=== PATIENT | male | born 1995 | race Caucasian/White ===

== ENCOUNTER 2020-10-02 10:18 | Day surgery (SDC) | payer BC ==
[2020-10-02] MEDS ORDERED: Sodium Chloride 0.9% 10 ML Syringe FLUSH PRN (10:37)
[2020-10-02] MEDS ORDERED: diphenhydrAMINE 50 MG/ML SDV IVPUSH PRN (10:37)
[2020-10-02] MEDS ORDERED: HYDROmorphone 2 MG/ML Syringe IVPUSH PRN ×2 (10:37→11:39)
[2020-10-02] MEDS ORDERED: Sodium Chloride 0.9% 2.5 ML Syringe FLUSH PRN (10:37)
[2020-10-02] MEDS ORDERED: Ondansetron 4 MG/2 ML SDV IVPUSH PRN ×2 (10:37→11:39)
[2020-10-02] MEDS ORDERED: Sodium Chloride 0.9% 10 ML SDV IV PRN (10:37)
[2020-10-02] MEDS ORDERED: Lactated Ringers 1,000 ML IV SCH (10:45)
[2020-10-02] MEDS ORDERED: Ciprofloxacin in D5W 400 MG in Premix Bag 1 BAG IV SCH ×2 (10:45)
[2020-10-02] MEDS ORDERED: Midazolam 1 MG/ML 2 ML SDV ONE (11:17)
[2020-10-02] MEDS ORDERED: Propofol 200 MG/20 ML SDV ONE ×2 (11:18→12:13)
[2020-10-02] MEDS ORDERED: Lidocaine 2% 5 ML SDV ONE (11:18)
[2020-10-02] MEDS ORDERED: fentaNYL 100 MCG/2 ML SDV ONE (11:18)
[2020-10-02] MEDS ORDERED: Ondansetron 4 MG/2 ML SDV ONE (11:19)
[2020-10-02] MEDS ORDERED: Rocuronium Bromide 50 MG/5 ML Syringe ONE (11:19)
[2020-10-02] MEDS ORDERED: Morphine 2 MG/ML SYRINGE IVPUSH PRN (11:39)
[2020-10-02] MEDS ORDERED: Naloxone 0.4 MG/ML Syringe IVPUSH PRN (11:39)
[2020-10-02] MEDS ORDERED: Albuterol 0.083% 2.5 MG/3 ML Neb Soln NEB PRN (11:39)
[2020-10-02] MEDS ORDERED: fentaNYL 100 MCG/2 ML SDV IVPUSH PRN (11:39)
[2020-10-02] MEDS ORDERED: Metoclopramide 10 MG/2 ML SDV IVPUSH PRN (11:39)
--- NOTE | 2020-10-02 11:39 | PCM.PREANE ---
Preanesthetic Assessment - Anesthesia/Transfusion/Family Hx Anesthesia History: Prior Anesthesia Without Reaction Transfusion History: No Prior Transfusion(s) - Review of Systems General: No Symptoms Pulmonary: No Symptoms Cardiovascular: No Symptoms Gastrointestinal: No Symptoms Neurological: No Symptoms Other: Reports: None - Physical Assessment NPO Status Date: 10/02/20 NPO Status Time: 00:00 Vital Signs: Last Vital Signs Temp 97.0 F 10/02/20 10:54 Pulse 103 H 10/02/20 10:54 Resp 16 10/02/20 10:54 BP 135/85 10/02/20 10:54 Pulse Ox 95 10/02/20 10:54 Height: 6 ft Weight: 281 lb 11.2 oz ASA Class: 2E Mental Status: Alert & Oriented x3 Airway Class: Mallampati = 2 Dentition: Reports: Normal Dentition ROM/Head Extension: Full Lungs: Clear to Auscultation, Normal Respiratory Effort Cardiovascular: Regular Rate, Regular Rhythm - Allergies Allergies/Adverse Reactions: Allergies Allergy/AdvReac Type Severity Reaction Status Date / Time Penicillins Allergy Cannot Verified 10/02/20 11:19 Remember - Blood Blood Available: No - Anesthesia Plan Pre-Op Medication Ordered: None - Acknowledgements Anesthesia Type Planned: General Anesthesia Pt an Appropriate Candidate for the Planned Anesthesia: Yes Alternatives and Risks of Anesthesia Discussed w Pt/Guardian: Yes Pt/Guardian Understands and Agrees with Anesthesia Plan: Yes PreAnesthesia Questionnaire - Past Health History Medical/Surgical History: Denies Medical/Surgical History - SUBSTANCE USE Tobacco Use Status *Q: Never Tobacco User Second Hand Smoke Exposure: No Recreational Drug Use History: No - HOME MEDS Home Medications: Home Meds . [No Known Home Meds] 01/01/20 [History] - CURRENT (IN HOUSE) MEDS Current Meds: Current Medications Diphenhydramine HCl (Diphenhydramine 50 Mg/Ml Sdv) 50 mg IVPUSH Q4H PRN PRN Reason: Itching Hydromorphone HCl (Hydromorphone 2 Mg/Ml Syringe) 0.5 mg IVPUSH Q1H PRN PRN Reason: Pain (severe 7-10) Lactated Ringer's (Ringers, Lactated) 1,000 mls @ 125 mls/hr IV ASDIRECTED [facility] Last Admin: 10/02/20 10:52 Dose: 125 mls/hr Documented by: Ciprofloxacin/Dextrose 400 mg/ (Premix) 200 mls @ 200 mls/hr IV Q12H [facility] Last Admin: 10/02/20 10:59 Dose: 200 mls/hr Documented by: Metronidazole 500 mg/ Premix 100 mls @ 100 mls/hr IV QID [facility] Ondansetron HCl (Ondansetron 4 Mg/2 Ml Sdv) 4 mg IVPUSH Q6H PRN PRN Reason: Nausea/Vomiting Sodium Chloride (Sodium Chloride 0.9% 10 Ml Syringe) 10 ml FLUSH ASDIRECTED PRN PRN Reason: Keep Vein Open Sodium Chloride (Sodium Chloride 0.9% 2.5 Ml Syringe) 2.5 ml FLUSH ASDIRECTED PRN PRN Reason: Keep Vein Open Sodium Chloride (Sodium Chloride 0.9% 10 Ml Sdv) 10 ml IV ASDIRECTED PRN PRN Reason: IV Use Discontinued Medications Fentanyl (Fentanyl 100 Mcg/2 Ml Sdv) Confirm Administered Dose 100 mcg .ROUTE .STK-MED ONE Stop: 10/02/20 11:19 Lidocaine (Lidocaine 2% 5 Ml Sdv) Confirm Administered Dose 5 ml .ROUTE .STK-MED ONE Stop: 10/02/20 11:19 Midazolam HCl (Midazolam 1 Mg/Ml 2 Ml Sdv) Confirm Administered Dose 2 mg .ROUTE .STK-MED ONE Stop: 10/02/20 11:18 Ondansetron HCl (Ondansetron 4 Mg/2 Ml Sdv) Confirm Administered Dose 4 mg .ROUTE .STK-MED ONE Stop: 10/02/20 11:20 Propofol (Propofol 200 Mg/20 Ml Sdv) Confirm Administered Dose 200 mg .ROUTE .STK-MED ONE Stop: 10/02/20 11:19 Rocuronium [place] (Rocuronium [place] 50 Mg/5 Ml Syringe) Confirm Administered Dose 50 mg .ROUTE .STK-MED ONE Stop: 10/02/20 11:20
[2020-10-02] MEDS ORDERED: metroNIDAZOLE/Normal Saline 500 MG in Premix Bag 1 BAG IV SCH (12:00)
[2020-10-02] MEDS ORDERED: Bupivacaine 0.5% 10 ML SDV ONE (12:19)
[2020-10-02] MEDS ORDERED: Octyl 2-Cyanoacrylate 1 Tube ONE (12:19)
--- NOTE | 2020-10-02 13:01 | PCM.HP.2 ---
H&P History of Present Illness - General Date of Service: 10/02/20 Admit Problem/Dx: Admission Diagnosis/Problem Admission Diagnosis/Problem Appendicitis Source of Information: Patient History Limitations: Reports: No Limitations - History of Present Illness Initial Comments - Free Text/Narative: Patient is a 25 year old male who presented to an OSH with acute abdominal pain. He felt unwell after supper last evening. He went to bed and was awoken by severe lower right quadrant pain that progressively got worse. He presented to an OSH ER. He was slightly hypertensive on arrival. He was found to have a WBC of 16K with a left shift. He had a CT scan that showed a retrocecal appendix which was dilated to 11mm with inflammatory stranding suggesting acute appendicitis. - Related Data Allergies/Adverse Reactions: Allergies Allergy/AdvReac Type Severity Reaction Status Date / Time Penicillins Allergy Cannot Verified 10/02/20 11:19 Remember Home Medications: Home Meds . [No Known Home Meds] 01/01/20 [History] Past Medical History - Past Health History Medical/Surgical History: Denies Medical/Surgical History - Infectious Disease History Infectious Disease History: Reports: Chicken Pox - Past Surgical History Other HEENT Surgeries/Procedures: wears contact lenses, wisdom teeth removal Social & Family History - Family History Cardiac: Reports: Hypertension Other Cardiac Family History: Dad and grandpa Oncologic: Reports: Breast, Other (See Below) Other Oncologic Family History: testicular - Tobacco Use Tobacco Use Status *Q: Never Tobacco User Second Hand Smoke Exposure: No - Caffeine Use Caffeine Use: Reports: Energy Drinks Caffeine Use Comment: Occasionally - Recreational Drug Use Recreational Drug Use: No H&P Review of Systems - Review of Systems: Review Of Systems: Comprehensive ROS is negative, except as noted in HPI. Exam - Exam Exam: See Below - Vital Signs Vital Signs: Last Vital Signs Temp 36.1 C 10/02/20 10:54 Pulse 103 H 10/02/20 10:54 Resp 16 10/02/20 10:54 BP 135/85 10/02/20 10:54 Pulse Ox 95 10/02/20 10:54 Weight: 127.777 kg - Exam General: Alert, Oriented, Cooperative HEENT: Conjunctiva Clear, Mucosa Moist & [place], Posterior Pharynx Clear Neck: Supple, Trachea Midline Lungs: Clear to Auscultation, Normal Respiratory Effort Cardiovascular: Regular Rate, Regular Rhythm GI/Abdominal Exam: Soft, No Distention, Guarding (RLQ), Rebound (RLQ), Tender (RLQ) Back Exam: Normal Inspection - Patient Data Lab Results Last 24 hrs: Laboratory Results - last 24 hr 10/02/20 Range/Units 11:39 SARS-CoV-2 RNA (BETH) POSITIVE H (NEGATIVE) Sepsis Event Note - Evaluation Sepsis Screening Result: No Definite Risk - Focused Exam Vital Signs: Vital Signs Temp Pulse Resp BP Pulse Ox 10/02/20 10:54 36.1 C 103 H 16 135/85 95 - Problem List (1) Appendicitis SNOMED Code(s): 01880347 ICD Code: K37 - UNSPECIFIED APPENDICITIS Status: Acute Current Visit: Yes (2) Lab test positive for detection of COVID-19 virus SNOMED Code(s): 0619870256124357 ICD Code: U07.1 - COVID-19 Status: Acute Current Visit: Yes Problem List Initiated/Reviewed/Updated: Yes Orders Last 24hrs: Active Orders 24 hr Category Date Time Status Patient Status [ADT] Routine ADT 10/02/20 10:37 Active Antiembolic Devices [RC] .Routine Care 10/02/20 10:39 Active Blood Glucose Check, Bedside [RC] PRN Care 10/02/20 11:39 Active Intake and Output [RC] Q12H Care 10/02/20 10:38 Active Notify Provider Vital Signs [RC] ASDIRECTED Care 10/02/20 11:39 Active Overnight Pulse Oximetry [RC] Click to Edit Care 10/02/20 11:39 Active Oxygen Therapy [RC] PRN Care 10/02/20 10:37 Active Oxygen Therapy [RC] PRN Care 10/02/20 11:39 Active RT Aerosol Therapy [RC] ASDIRECTED Care 10/02/20 11:39 Active RT Aerosol Therapy [RC] ASDIRECTED Care 10/02/20 11:39 Active RT BiPAP/CPAP [RC] ASDIRECTED Care 10/02/20 11:39 Active RT Incentive Spirometry [RC] Q1HWA Care 10/02/20 10:37 Active Up ad Sonya [RC] ASDIRECTED Care 10/02/20 10:37 Active VTE/DVT Education [RC] PER UNIT ROUTINE Care 10/02/20 10:39 Active Vital Signs [RC] Q4H Care 10/02/20 10:37 Active Vital Signs [RC] Q5M Care 10/02/20 11:39 Active Nothing Per Oral Diet [DIET] Diet 10/02/20 Breakfast Active Albuterol [Proventil Neb Soln] Med 10/02/20 11:39 Active 2.5 mg NEB ONETIME PRN Ciprofloxacin in D5W [Cipro in D5W 400 MG/200 ML] 400 Med 10/02/20 10:45 Active mg Premix Bag 1 bag IV Q12H HYDROmorphone [Dilaudid] Med 10/02/20 10:37 Active 0.5 mg IVPUSH Q1H PRN HYDROmorphone [Dilaudid] Med 10/02/20 11:39 Active 1 mg IVPUSH Q10M PRN Lactated Ringers [Ringers, Lactated] 1,000 ml Med 10/02/20 10:45 Active IV ASDIRECTED Metoclopramide [Reglan] Med 10/02/20 11:39 Active 10 mg IVPUSH ONETIME PRN Morphine Med 10/02/20 11:39 Active 2 mg IVPUSH Q10M PRN Naloxone [Narcan] Med 10/02/20 11:39 Active 0.1 mg IVPUSH ASDIRECTED PRN Ondansetron [Zofran] Med 10/02/20 11:39 Active 4 mg IVPUSH ONETIME PRN Ondansetron [Zofran] Med 10/02/20 10:37 Active 4 mg IVPUSH Q6H PRN Sodium Chloride 0.9% [Normal Saline] Med 10/02/20 10:37 Active 10 ml IV ASDIRECTED PRN Sodium Chloride 0.9% [Saline Flush] Med 10/02/20 10:37 Active 10 ml FLUSH ASDIRECTED PRN Sodium Chloride 0.9% [Saline Flush] Med 10/02/20 10:37 Active 2.5 ml FLUSH ASDIRECTED PRN diphenhydrAMINE [Benadryl] Med 10/02/20 10:37 Active 50 mg IVPUSH Q4H PRN droperidoL [Inapsine] Med 10/02/20 11:39 Active 0.625 mg IVPUSH ONETIME PRN fentaNYL [Sublimaze] Med 10/02/20 11:39 Active 50 mcg IVPUSH Q5M PRN metroNIDAZOLE/Normal Saline [Flagyl in NS 500 MG/100 ML Med 10/02/20 12:00 Active ] 500 mg Premix Bag 1 bag IV QID DVT/VTE Prophylaxis Reflex [OM.PC] Routine Oth 10/02/20 10:37 Ordered Peripheral IV Insertion Adult [OM.PC] Urgent Oth 10/02/20 10:37 Ordered Pulse Oximetry Continuous Monitoring [OM.PC] Routine Oth 10/02/20 11:39 Ordered Resuscitation Status Routine Resus Stat 10/02/20 10:37 Ordered Medication Orders Albuterol (Albuterol 0.083% 2.5 Mg/3 Ml Neb Soln) 2.5 mg NEB ONETIME PRN PRN Reason: Wheezing Diphenhydramine HCl (Diphenhydramine 50 Mg/Ml Sdv) 50 mg IVPUSH Q4H PRN PRN Reason: Itching Droperidol (Droperidol 5 Mg/2 Ml Sdv) 0.625 mg IVPUSH ONETIME PRN PRN Reason: Nausea/Vomiting Fentanyl (Fentanyl 100 Mcg/2 Ml Sdv) 50 mcg IVPUSH Q5M PRN PRN Reason: Pain (mild 1-3) Hydromorphone HCl (Hydromorphone 2 Mg/Ml Syringe) 0.5 mg IVPUSH Q1H PRN PRN Reason: Pain (severe 7-10) Hydromorphone HCl (Hydromorphone 2 Mg/Ml Syringe) 1 mg IVPUSH Q10M PRN PRN Reason: Pain (moderate 4-6) Lactated Ringer's (Ringers, Lactated) 1,000 mls @ 125 mls/hr IV ASDIRECTED [facility] Last Admin: 10/02/20 10:52 Dose: 125 mls/hr Documented by: BERTHA Ciprofloxacin/Dextrose 400 mg/ (Premix) 200 mls @ 200 mls/hr IV Q12H [facility] Last Admin: 10/02/20 10:59 Dose: 200 mls/hr Documented by: BERTHA Metronidazole 500 mg/ Premix 100 mls @ 100 mls/hr IV QID [facility] Last Admin: 10/02/20 11:55 Dose: 100 mls/hr Documented by: BERTHA Metoclopramide HCl (Metoclopramide 10 Mg/2 Ml Sdv) 10 mg IVPUSH ONETIME PRN PRN Reason: Nausea/Vomiting Morphine Sulfate (Morphine 2 Mg/Ml Syringe) 2 mg IVPUSH Q10M PRN PRN Reason: Pain (severe 7-10) Naloxone HCl (Naloxone 0.4 Mg/Ml Syringe) 0.1 mg IVPUSH ASDIRECTED PRN PRN Reason: Respiratory Depression Ondansetron HCl (Ondansetron 4 Mg/2 Ml Sdv) 4 mg IVPUSH Q6H PRN PRN Reason: Nausea/Vomiting Ondansetron HCl (Ondansetron 4 Mg/2 Ml Sdv) 4 mg IVPUSH ONETIME PRN PRN Reason: Nausea/Vomiting Sodium Chloride (Sodium Chloride 0.9% 10 Ml Syringe) 10 ml FLUSH ASDIRECTED PRN PRN Reason: Keep Vein Open Sodium Chloride (Sodium Chloride 0.9% 2.5 Ml Syringe) 2.5 ml FLUSH ASDIRECTED PRN PRN Reason: Keep Vein Open Sodium Chloride (Sodium Chloride 0.9% 10 Ml Sdv) 10 ml IV ASDIRECTED PRN PRN Reason: IV Use Assessment/Plan Comment:: The patient was transferred to our care. A COVID test was performed which was positive. The patient is currently asymptomatic. His physical exam was normal. The case is an emergency and needs to be performed to prevent perforation and the complications associated with that. We discussed the pathophysiology of acute appendicitis. I explained the need for an appendectomy. I will attempt this laparoscopically but convert to open should I be unable to perform it safely. We discussed the expected perioperative course for perforated vs non-perforated appendicitis. We discussed the risks including bleeding, infection or damage to surrounding structures. He verbalized understanding and wishes to proceed.
[2020-10-02] MEDS ORDERED: HYDROmorphone 2 MG/ML Syringe ONE (13:54)
[2020-10-02] MEDS ORDERED: Bupivacaine 0.5% 30 ML SDV ONE (13:58)
[2020-10-02] MEDS ORDERED: Sugammadex Sodium 200 MG/2 ML VIAL ONE ×2 (14:49)
--- NOTE | 2020-10-02 15:07 | PCM.OPNOTE ---
- General Post-Op/Procedure Note Date of Surgery/Procedure: 10/02/20 Operative Procedure(s): Laparoscopic appendectomy Findings: Retrocecal appendix, inflamed and enlarged. No evidence of perforation Pre Op Diagnosis: acute appendicitis Post-Op Diagnosis: same Anesthesia Technique: General ET Tube Primary Surgeon: Jennifer Lerma Pathology: appendix Fluid Replacement, Intraop: 1,200 Output, Urine Amount: 450 EBL in mLs: 10 Condition: Good
[2020-10-02] MEDS ORDERED: Acetaminophen/oxyCODONE 325-5 MG Tab PO PRN (15:09)
[2020-10-02] MEDS ORDERED: Ketorolac 10 MG Tab PO PRN (15:10)
--- NOTE | 2020-10-02 15:18 | PCM.POSTAN ---
POST ANESTHESIA ASSESSMENT - MENTAL STATUS Mental Status: Somnolent - VITAL SIGNS Vital Signs: Last Vital Signs Temp 97.0 F 10/02/20 10:54 Pulse 103 H 10/02/20 10:54 Resp 16 10/02/20 10:54 BP 135/85 10/02/20 10:54 Pulse Ox 95 10/02/20 11:39 - RESPIRATORY Respiratory Status: Respiratory Rate WNL, Airway Patent, O2 Saturation Stable - CARDIOVASCULAR CV Status: Pulse Rate WNL, Blood Pressure Stable - GASTROINTESTINAL GI Status: No Symptoms - POST OP HYDRATION Hydration Status: Adequate & Stable
--- NOTE | 2020-10-02 16:05 | OR ---
SURGEON: JENNIFER LERMA MD DATE OF PROCEDURE: 10/02/2020 PREOPERATIVE DIAGNOSIS: Acute appendicitis. POSTOPERATIVE DIAGNOSIS: Acute appendicitis. PROCEDURE PERFORMED: Laparoscopic appendectomy. PRIMARY SURGEON: Jennifer Lerma MD ANESTHESIA: General endotracheal anesthesia. FLUIDS: 1200 mL of crystalloid. ESTIMATED BLOOD LOSS: 10 mL. URINE OUTPUT: 450 mL. FINDINGS: Retrocecal appendix which was enlarged and inflamed, but had no evidence of perforation. COMPLICATIONS: None. INDICATIONS: The patient is a 25-year-old male who presented to an outside hospital this morning with severe right lower quadrant pain. Workup revealed leukocytosis with a left shift, and CT scan showed acute appendicitis with no evidence of rupture. He was transferred to our facility. I visited with the patient regarding the pathophysiology of acute appendicitis and the need for an appendectomy. I would attempt this laparoscopically, but convert to open should I be unable to perform it safely. I explained the procedure, expected perioperative course, and the risks including bleeding, infection, or damage to surrounding structures. He verbalized understanding and wishes to proceed. PROCEDURE IN DETAIL: The patient was brought to the OR and placed on the OR table in supine position. A time-out was completed verifying the patient's name, age, date of , allergies, and procedure to be performed. General endotracheal anesthesia was induced. The left arm was tucked to the patient's side and a Rosa catheter placed. The abdomen was prepped and draped in usual standard fashion. I anesthetized an area 2 fingerbreadths below the left subcostal margin in the midclavicular line with 0.5% Marcaine plain. An 11-blade was used to make an incision in this area. A 5 mm optical trocar was used to gain entry into the abdomen under direct visualization. The abdomen was insufflated and a 5 mm 30- degree scope was inserted. I inspected the area underneath my initial trocar placement. A small rent was made in the overlying omentum. A 5 mm trocar was then placed just left and lateral to the umbilicus under direct visualization. I then used this to inspect the area underneath my initial trocar placement. The omentum was swept away and I closely inspected the small bowel underneath. No damage to the underlying tissue was noted. The camera was then placed back in the left upper quadrant port. I then placed a 12 mm trocar just inferior to the umbilicus in the midline. The patient was placed into Trendelenburg position and airplaned slightly to the left. I identified the cecum and followed it down to the base. I could see the terminal ileum and ileocecal fat pad inserted medially. The CT scan showed a retrocecal appendix which appeared to be curled upon itself. I rotated the cecum medially and identified the base of the appendix. Using blunt dissection, I then swept away the retrocecal attachments to the appendix. I was then able to rotate the appendix more anteriorly. Again, I could clearly see the base of the appendix, but the appendix itself was wrapped around itself and densely adhered to the appendiceal mesentery. Using [place] dissector as well as blunt dissection, I was eventually able to uncurl the appendix from itself and get a good look at the appendiceal mesentery. This was taken down using a Harmonic Scalpel device, taking care to not injure any of the structures around it. A window was created between the appendiceal base and the appendiceal mesentery. Once all the appendiceal mesentery was taken down from the body of the appendix, a photograph was taken. I then stapled and transected across the base of the appendix using an endoscopic stapling device with a 35 mm blue load of leelee. The appendix was placed in an Endo Catch bag and removed through the 12 mm infraumbilical port site. The 12 mm trocar was reinserted. I irrigated my operative field. It appeared to be hemostatic. The irrigant was suctioned out. I then removed the 12 mm trocar and closed the site with an interrupted 0 Vicryl suture using a Maynor-Zachary device. The omentum was then placed back over the top of the small intestines. The 5 mm trocars were then removed under direct visualization and the abdomen allowed to desufflate. The 12 mm trocar site was closed with interrupted 3-0 Vicryl in the subcutaneous fat layer and the skin was closed with interrupted 4-0 Monocryl sutures. The 5 mm trocar sites were closed with interrupted 4-0 Monocryl sutures. Steri-Strips and sterile dressings were placed over the incisions. The patient tolerated the procedure well. He was extubated and monitored in the OR closely given his COVID positive status. All counts were complete and correct at the end of the case. LEMEASH / MODL /[id number]
--- NOTE | 2020-10-03 08:31 | PCM.SURGPN ---
- General Info Date of Service: 10/03/20 Date of Surgery/Procedure: 10/02/20 POD#: 1 Functional Status: Reports: Pain Controlled, Tolerating Diet, Ambulating, Urinating. Denies: New Symptoms - Review of Systems General: Reports: No Symptoms HEENT: Reports: No Symptoms Pulmonary: Reports: No Symptoms Cardiovascular: Reports: No Symptoms Gastrointestinal: Reports: No Symptoms Genitourinary: Reports: No Symptoms Skin: Reports: No Symptoms - Patient Data Vitals - Most Recent: Last Vital Signs Temp 37.0 C 10/03/20 08:00 Pulse 82 10/03/20 08:00 Resp 16 10/03/20 08:00 BP 129/79 10/03/20 08:00 Pulse Ox 97 10/03/20 08:00 Weight - Most Recent: 127.777 kg I&O - Last 24 Hours: Intake & Output 10/02/20 10/03/20 10/03/20 22:59 06:59 14:59 Intake Total 2650 650 Output Total 1150 850 Balance 1500 -200 Lab Results Last 24 Hrs: Laboratory Results - last 24 hr 10/02/20 Range/Units 11:39 SARS-CoV-2 RNA (BETH) POSITIVE H (NEGATIVE) Med Orders - Current: Current Medications Diphenhydramine HCl (Diphenhydramine 50 Mg/Ml Sdv) 50 mg IVPUSH Q4H PRN PRN Reason: Itching Hydromorphone HCl (Hydromorphone 2 Mg/Ml Syringe) 0.5 mg IVPUSH Q1H PRN PRN Reason: Pain (severe 7-10) Ketorolac Tromethamine (Ketorolac 10 Mg Tab) 10 mg PO Q6H PRN PRN Reason: Pain (mild 1-3) Stop: 10/07/20 15:16 Ondansetron HCl (Ondansetron 4 Mg/2 Ml Sdv) 4 mg IVPUSH Q6H PRN PRN Reason: Nausea/Vomiting Oxycodone/Acetaminophen (Acetaminophen/Oxycodone 325-5 Mg Tab) 2 tab PO Q4H PRN PRN Reason: Pain (severe 7-10) Sodium Chloride (Sodium Chloride 0.9% 10 Ml Syringe) 10 ml FLUSH ASDIRECTED PRN PRN Reason: Keep Vein Open Sodium Chloride (Sodium Chloride 0.9% 2.5 Ml Syringe) 2.5 ml FLUSH ASDIRECTED PRN PRN Reason: Keep Vein Open Sodium Chloride (Sodium Chloride 0.9% 10 Ml Sdv) 10 ml IV ASDIRECTED PRN PRN Reason: IV Use Discontinued Medications Albuterol (Albuterol 0.083% 2.5 Mg/3 Ml Neb Soln) 2.5 mg NEB ONETIME PRN PRN Reason: Wheezing Bupivacaine HCl (Bupivacaine 0.5% 10 Ml Sdv) Confirm Administered Dose 10 ml .ROUTE .STK-MED ONE Stop: 10/02/20 12:20 Bupivacaine HCl (Bupivacaine 0.5% 30 Ml Sdv) Confirm Administered Dose 30 ml .ROUTE .STK-MED ONE Stop: 10/02/20 13:59 Droperidol (Droperidol 5 Mg/2 Ml Sdv) 0.625 mg IVPUSH ONETIME PRN PRN Reason: Nausea/Vomiting Fentanyl (Fentanyl 100 Mcg/2 Ml Sdv) Confirm Administered Dose 100 mcg .ROUTE .STK-MED ONE Stop: 10/02/20 11:19 Fentanyl (Fentanyl 100 Mcg/2 Ml Sdv) 50 mcg IVPUSH Q5M PRN PRN Reason: Pain (mild 1-3) Hydromorphone HCl (Hydromorphone 2 Mg/Ml Syringe) Confirm Administered Dose 2 mg .ROUTE .STK-MED ONE Stop: 10/02/20 13:55 Lactated Ringer's (Ringers, Lactated) 1,000 mls @ 125 mls/hr IV ASDIRECTED [facility] Last Admin: 10/02/20 10:52 Dose: 125 mls/hr Documented by: Ciprofloxacin/Dextrose 400 mg/ (Premix) 200 mls @ 200 mls/hr IV Q12H [facility] Last Admin: 10/02/20 10:59 Dose: 200 mls/hr Documented by: Metronidazole 500 mg/ Premix 100 mls @ 100 mls/hr IV QID [facility] Last Admin: 10/02/20 11:55 Dose: 100 mls/hr Documented by: Acetaminophen (Ofirmev 1000 Mg/100 Ml) Confirm Administered Dose 100 mls @ as directed .ROUTE .STK-MED ONE Stop: 10/02/20 13:49 Lidocaine (Lidocaine 2% 5 Ml Sdv) Confirm Administered Dose 5 ml .ROUTE .STK-MED ONE Stop: 10/02/20 11:19 Metoclopramide HCl (Metoclopramide 10 Mg/2 Ml Sdv) 10 mg IVPUSH ONETIME PRN PRN Reason: Nausea/Vomiting Midazolam HCl (Midazolam 1 Mg/Ml 2 Ml Sdv) Confirm Administered Dose 2 mg .ROUTE .STK-MED ONE Stop: 10/02/20 11:18 Morphine Sulfate (Morphine 2 Mg/Ml Syringe) 2 mg IVPUSH Q10M PRN PRN Reason: Pain (severe 7-10) Naloxone HCl (Naloxone 0.4 Mg/Ml Syringe) 0.1 mg IVPUSH ASDIRECTED PRN PRN Reason: Respiratory Depression Octyl Cyanoacrylate (Octyl 2-Cyanoacrylate 1 Tube) Confirm Administered Dose 1 applic .ROUTE .STK-MED ONE Stop: 10/02/20 12:20 Ondansetron HCl (Ondansetron 4 Mg/2 Ml Sdv) Confirm Administered Dose 4 mg .ROUTE .STK-MED ONE Stop: 10/02/20 11:20 Ondansetron HCl (Ondansetron 4 Mg/2 Ml Sdv) 4 mg IVPUSH ONETIME PRN PRN Reason: Nausea/Vomiting Propofol (Propofol 200 Mg/20 Ml Sdv) Confirm Administered Dose 200 mg .ROUTE .STK-MED ONE Stop: 10/02/20 11:19 Propofol (Propofol 200 Mg/20 Ml Sdv) Confirm Administered Dose 200 mg .ROUTE .STK-MED ONE Stop: 10/02/20 12:14 Rocuronium [place] (Rocuronium [place] 50 Mg/5 Ml Syringe) Confirm Administered Dose 50 mg .ROUTE .STK-MED ONE Stop: 10/02/20 11:20 Sugammadex Sodium (Sugammadex Sodium 200 Mg/2 Ml Vial) Confirm Administered Dose 200 mg .ROUTE .STK-MED ONE Stop: 10/02/20 14:50 Sugammadex Sodium (Sugammadex Sodium 200 Mg/2 Ml Vial) Confirm Administered Dose 200 mg .ROUTE .STK-MED ONE Stop: 10/02/20 14:50 - Exam Wound/Incisions: Healing Well, Dressing Dry and Intact General: Alert, Oriented Lungs: Clear to Auscultation Cardiovascular: Regular Rhythm GI/Abdominal Exam: Soft, Non-Tender, No Distention, No Mass Skin: Warm, Dry, Intact Sepsis Event Note - Evaluation Sepsis Screening Result: No Definite Risk - Focused Exam Vital Signs: Vital Signs Temp Pulse Resp BP Pulse Ox 10/03/20 08:00 37.0 C 82 16 129/79 97 10/03/20 04:00 37.2 C 90 17 116/62 96 10/03/20 00:00 37.0 C 96 17 125/58 L 96 - Problem List & Annotations (1) Appendicitis SNOMED Code(s): 78583802 Code(s): K37 - UNSPECIFIED APPENDICITIS Status: Acute Current Visit: Yes Qualifiers: Appendicitis type: acute appendicitis Acute appendicitis type: with localized peritonitis Appendicitis gangrene presence: without gangrene Appendicitis perforation presence: without perforation Appendicitis abscess presence: without abscess Qualified Code(s): K35.30 - Acute appendicitis with localized peritonitis, without perforation or gangrene (2) Lab test positive for detection of COVID-19 virus SNOMED Code(s): 4191122262661118 Code(s): U07.1 - COVID-19 Status: Acute Current Visit: Yes - Problem List Review Problem List Initiated/Reviewed/Updated: Yes - My Orders Last 24 Hours: Active Orders 24 hr Category Date Time Status Patient Status [ADT] Routine ADT 10/02/20 10:37 Active Antiembolic Devices [RC] .Routine Care 10/02/20 10:39 Active Blood Glucose Check, Bedside [RC] PRN Care 10/02/20 11:39 Active Intake and Output [RC] Q12H Care 10/02/20 10:38 Active Notify Provider Vital Signs [RC] ASDIRECTED Care 10/02/20 11:39 Active Overnight Pulse Oximetry [RC] Click to Edit Care 10/02/20 11:39 Active Oxygen Therapy [RC] PRN Care 10/02/20 10:37 Active Oxygen Therapy [RC] PRN Care 10/02/20 11:39 Active RT Aerosol Therapy [RC] ASDIRECTED Care 10/02/20 11:39 Active RT Aerosol Therapy [RC] ASDIRECTED Care 10/02/20 11:39 Active RT BiPAP/CPAP [RC] ASDIRECTED Care 10/02/20 11:39 Active RT Incentive Spirometry [RC] Q1HWA Care 10/02/20 10:37 Active Ready for Discharge [RC] PER UNIT ROUTINE Care 10/03/20 08:26 Active Up ad Sonya [RC] ASDIRECTED Care 10/02/20 10:37 Active VTE/DVT Education [RC] PER UNIT ROUTINE Care 10/02/20 10:39 Active Vital Signs [RC] Q4H Care 10/02/20 10:37 Active Vital Signs [RC] Q5M Care 10/02/20 11:39 Active Regular Diet [DIET] Diet 10/02/20 Dinner Active Acetaminophen/oxyCODONE [Percocet 325-5 MG] Med 10/02/20 15:09 Active 2 tab PO Q4H PRN HYDROmorphone [Dilaudid] Med 10/02/20 10:37 Active 0.5 mg IVPUSH Q1H PRN Ketorolac [Toradol] Med 10/02/20 15:10 Active 10 mg PO Q6H PRN Ondansetron [Zofran] Med 10/02/20 10:37 Active 4 mg IVPUSH Q6H PRN Sodium Chloride 0.9% [Normal Saline] Med 10/02/20 10:37 Active 10 ml IV ASDIRECTED PRN Sodium Chloride 0.9% [Saline Flush] Med 10/02/20 10:37 Active 10 ml FLUSH ASDIRECTED PRN Sodium Chloride 0.9% [Saline Flush] Med 10/02/20 10:37 Active 2.5 ml FLUSH ASDIRECTED PRN diphenhydrAMINE [Benadryl] Med 10/02/20 10:37 Active 50 mg IVPUSH Q4H PRN DVT/VTE Prophylaxis Reflex [OM.PC] Routine Oth 10/02/20 10:37 Ordered Peripheral IV Insertion Adult [OM.PC] Urgent Oth 10/02/20 10:37 Ordered Pulse Oximetry Continuous Monitoring [OM.PC] Routine Oth 10/02/20 11:39 Ordered Resuscitation Status Routine Resus Stat 10/02/20 10:37 Ordered Medication Orders Diphenhydramine HCl (Diphenhydramine 50 Mg/Ml Sdv) 50 mg IVPUSH Q4H PRN PRN Reason: Itching Hydromorphone HCl (Hydromorphone 2 Mg/Ml Syringe) 0.5 mg IVPUSH Q1H PRN PRN Reason: Pain (severe 7-10) Ketorolac Tromethamine (Ketorolac 10 Mg Tab) 10 mg PO Q6H PRN PRN Reason: Pain (mild 1-3) Stop: 10/07/20 15:16 Ondansetron HCl (Ondansetron 4 Mg/2 Ml Sdv) 4 mg IVPUSH Q6H PRN PRN Reason: Nausea/Vomiting Oxycodone/Acetaminophen (Acetaminophen/Oxycodone 325-5 Mg Tab) 2 tab PO Q4H PRN PRN Reason: Pain (severe 7-10) Sodium Chloride (Sodium Chloride 0.9% 10 Ml Syringe) 10 ml FLUSH ASDIRECTED PRN PRN Reason: Keep Vein Open Sodium Chloride (Sodium Chloride 0.9% 2.5 Ml Syringe) 2.5 ml FLUSH ASDIRECTED PRN PRN Reason: Keep Vein Open Sodium Chloride (Sodium Chloride 0.9% 10 Ml Sdv) 10 ml IV ASDIRECTED PRN PRN Reason: IV Use - Plan Plan (Free Text/Narrative):: Patient stable overnight. Tolerating a regular diet. Urinating without difficulty. We discussed the post opertive discharge instructions. Ok to go home. Follow up in 13 days in clinic given COVID positive status
--- NOTE | 2020-10-03 11:09 | PCM48HPAN ---
Post Anesthesia Note - EVALUATION WITHIN 48HRS OF ANESTHETIC Vital Signs in Normal Range: Yes Patient Participated in Evaluation: Yes Respiratory Function Stable: Yes Airway Patent: Yes Cardiovascular Function Stable: Yes Hydration Status Stable: Yes Pain Control Satisfactory: Yes Nausea and Vomiting Control Satisfactory: Yes Mental Status Recovered: Yes Vital Signs: Last Vital Signs Temp 98.6 F 10/03/20 08:00 Pulse 82 10/03/20 08:00 Resp 16 10/03/20 08:00 BP 129/79 10/03/20 08:00 Pulse Ox 97 10/03/20 08:00
== END 2020-10-03 09:10 | disposition home or self-care (01) ==
LOC: MW.SDS 10:18 → MW.MS 10:28 → MW.SDS 10-03 09:10
PROVIDERS: ATTEND Surgery
DX: K35.80 Unspecified acute appendicitis (principal); Z88.0 Allergy status to penicillin; U07.1 COVID-19
CPT/HCPCS: 44970; 87635; 88304; A9270; J0131; J0744; J1170; J2250; J2704; J3490; J7120; 00840; J2405; J3010; U0002